=== PATIENT | male | born 1980 | race Caucasian/White ===

== ENCOUNTER 2019-02-27 04:46 | Emergency (ER) | payer BC, SELFPAY ==
[2019-02-27] MEDS ORDERED: IBUPROFEN 400 MG TAB ONE (05:55)
[2019-02-27] MEDS ORDERED: CLINDAMYCIN HCL 150 MG CAP ONE (05:55)
[2019-02-27] MEDS ORDERED: ONDANSETRON 4 MG/2 ML VIAL ONE (06:18)
--- NOTE | 2019-02-27 06:28 | EDPHYS ---
Physician Documentation [facility] Name: Julius Ramírez Age: 38 yrs Sex: Male : 1980 Arrival Date: 02/27/2019 Time: 04:47 Bed 6 Private MD: ED Physician Russ Shah HPI: 02/27 06:23 This 38 yrs old Male presents to ER via Ambulatory with complaints of Hand tw4 Injury. 06:23 The patient or guardian reports injury, pain, swelling. The complaints affect the MCP tw4 of left little finger. Context: The problem was sustained at home, resulted from a direct blow, by a door. Onset: The symptoms/episode began/occurred today. Modifying factors: The symptoms are alleviated by nothing, the symptoms are aggravated by nothing. Associated signs and symptoms: The patient has no apparent associated signs or symptoms. Severity of symptoms: At their worst the symptoms were moderate, in the emergency department the symptoms are unchanged. The patient has not experienced similar symptoms in the past. Historical: - Allergies: 04:59 No Known Allergies; rr5 - Home Meds: 04:59 insulin [Active]; rr5 - PMHx: 04:59 Diabetes - IDDM; rr5 - PSHx: 04:59 foot surgery; Appendectomy; rr5 - Immunization history:: Adult Immunizations up to date, Last tetanus immunization: up to date Flu vaccine is not up to date. - Social history:: Smoking status: Patient/guardian denies using tobacco, Patient/guardian denies using alcohol, street drugs. - Ebola Screening: : Patient negative for fever greater than or equal to 101.5 degrees Fahrenheit, and additional compatible Ebola Virus Disease symptoms Patient denies exposure to infectious person Patient denies travel to an Ebola-affected area in the 21 days before illness onset. ROS: 06:23 Constitutional: Negative for fever, chills, and weight loss, Eyes: Negative for injury, tw4 pain, redness, and discharge, Cardiovascular: Negative for chest pain, palpitations, and edema, Respiratory: Negative for shortness of breath, cough, wheezing, and pleuritic chest pain, Abdomen/GI: Negative for abdominal pain, nausea, vomiting, diarrhea, and constipation, Back: Negative for injury and pain, Skin: Negative for injury, rash, and discoloration, Neuro: Negative for headache, weakness, numbness, tingling, and seizure. 06:23 MS/extremity: Positive for injury or acute deformity, decreased range of motion, deformity, Negative for Exam: 06:23 Constitutional: This is a well developed, well nourished patient who is awake, alert, tw4 and in no acute distress. Head/Face: Normocephalic, atraumatic. Chest/axilla: Normal chest wall appearance and motion. Nontender with no deformity. No lesions are appreciated. Cardiovascular: Regular rate and rhythm with a normal S1 and S2. No gallops, murmurs, or rubs. Normal PMI, no JVD. No pulse deficits. Respiratory: Lungs have equal breath sounds bilaterally, clear to auscultation and percussion. No rales, rhonchi or wheezes noted. No increased work of breathing, no retractions or nasal flaring. Abdomen/GI: Soft, non-tender, with normal bowel sounds. No distension or tympany. No guarding or rebound. No evidence of tenderness throughout. 06:23 Musculoskeletal/extremity: Extremities: grossly normal except: noted in the dorsum of left hand: decreased ROM, laceration, puncture, swelling, tenderness, ROM: limited active range of motion due to pain, in the dorsum of left hand, limited passive range of motion due to pain, in the dorsum of left hand. Vital Signs: 04:58 BP 157 / 94; Pulse 91; Resp 16; Temp 98.5; Pulse Ox 99% ; Weight 90.72 kg; Height 5 ft. rr5 9 in. (175.26 cm); Pain 7/10; 06:00 BP 143 / 100; Pulse 90; Resp 17; Pulse Ox 98% on R/A; rr5 07:31 BP 149 / 93; Pulse 85; Resp 16; Pulse Ox 99% on R/A; sv 04:58 Body Mass Index 29.53 (90.72 kg, 175.26 cm) rr5 MDM: 05:07 Patient medically screened. tw4 12/03 05:52 Data reviewed: vital signs, nurses notes. Data reviewed: radiologic studies, plain tw4 films. Test interpretation: by ED physician or midlevel provider: plain radiologic studies. Counseling: I had a detailed discussion with the patient and/or guardian regarding: the historical points, exam findings, and any diagnostic results supporting the discharge/admit diagnosis. Special discussion: I discussed with the patient/guardian in detail that at this point there is no indication for admission to the hospital. It is understood, however, that if the symptoms persist or worsen the patient needs to return immediately for re-evaluation. 02/27 04:59 Order name: Hand Left 3 View XRAY tw4 02/27 06:15 Order name: IV Saline Lock; Complete Time: 06:33 tw4 Administered Medications: 02/27 05:56 Drug: Cleocin 300 mg Route: PO; rr5 06:33 Follow up: Response: No adverse reaction rr5 05:56 Drug: Motrin 800 mg Route: PO; rr5 06:33 Follow up: Response: No adverse reaction rr5 06:21 Not Given (Patient Refused): Tetanus-Diphtheria Toxoid Adult 0.5 ml IM once ea 06:33 Drug: Zofran 4 mg Route: IVP; Site: right forearm; rr5 07:00 Follow up: Response: No adverse reaction rr5 07:08 Drug: morphine 4 mg {Note: rass 0.} Route: IVP; Site: right forearm; rr5 Disposition: 02/27/19 06:31 Transfer ordered to [facility]. Diagnosis are Displaced fracture of base of fifth metacarpal bone. left hand, open fracture fifth metacarpal left hand. - Reason for transfer: Higher level of care. - Accepting physician is Dr Brower. - Condition is Stable. - Problem is new. - Symptoms have improved. Signatures: Dispatcher [employer] EDWA Dacia Corea RN ROB Russ Shah MD MD tw4 Doni Mckeon RN RN rr5 Iris Euceda RN, ea Corrections: (The following items were deleted from the chart) 06:21 05:00 Hand Right 3 View+RAD.RAD.BRZ ordered. [facility] EDWA 06:30 06:28 02/27/2019 06:28 Discharged to Home. Impression: Displaced fracture of base of tw4 fifth metacarpal bone. left hand; open fracture fifth metacarpal left hand. Condition is Stable. Forms are Medication Reconciliation Form, Thank You Letter, Antibiotic Education, Prescription Opioid Use. Follow up: Private Physician; When: Upon discharge from the Emergency Department; Reason: Recheck today's complaints, Continuance of care. Problem is new. Symptoms have improved. tw4 08:46 06:31 02/27/2019 06:31 Transfer ordered to [facility]. Diagnosis is Displaced sv fracture of base of fifth metacarpal bone. left hand; open fracture fifth metacarpal left hand. Reason for transfer: Higher level of care. Accepting physician is Dr Brower. Condition is Stable. Problem is new. Symptoms have improved. tw4
--- NOTE | 2019-02-27 06:28 | ER ---
Nurse's Notes [facility] Name: Julius Ramírez Age: 38 yrs Sex: Male : 1980 Arrival Date: 02/27/2019 Time: 04:47 Bed 6 Private MD: Diagnosis: Displaced fracture of base of fifth metacarpal bone. left hand;open fracture fifth metacarpal left hand Presentation: 02/27 04:56 Presenting complaint: Patient states: my hand is hurting. I punched the door frame rr5 today at around 0230H. Transition of care: patient was not received from another setting of care. Onset of symptoms was February 27, 2019 at 02:30. Risk Assessment: Do you want to hurt yourself or someone else? Patient reports no desire to harm self or others. Initial Sepsis Screen: Does the patient meet any 2 criteria? No. Patient's initial sepsis screen is negative. Does the patient have a suspected source of infection? No. Patient's initial sepsis screen is negative. Care prior to arrival: None. 04:56 Method Of Arrival: Ambulatory rr5 04:56 Acuity: DMITRIY 4 rr5 04:56 Note abrasion both hands, punctured wound and swelling noted at left hand. rr5 Historical: - Allergies: 04:59 No Known Allergies; rr5 - Home Meds: 04:59 insulin [Active]; rr5 - PMHx: 04:59 Diabetes - IDDM; rr5 - PSHx: 04:59 foot surgery; Appendectomy; rr5 - Immunization history:: Adult Immunizations up to date, Last tetanus immunization: up to date Flu vaccine is not up to date. - Social history:: Smoking status: Patient/guardian denies using tobacco, Patient/guardian denies using alcohol, street drugs. - Ebola Screening: : Patient negative for fever greater than or equal to 101.5 degrees Fahrenheit, and additional compatible Ebola Virus Disease symptoms Patient denies exposure to infectious person Patient denies travel to an Ebola-affected area in the 21 days before illness onset. Screenin:59 Abuse screen: Denies threats or abuse. Denies injuries from another. Nutritional rr5 screening: On. Tuberculosis screening: No symptoms or risk factors identified. Fall Risk None identified. Total James Fall Scale indicates No Risk (0-24 pts). Assessment: 04:59 General: Appears in no apparent distress. uncomfortable, Behavior is calm, cooperative, rr5 appropriate for age. Pain: Complains of pain in right hand and left hand Pain does not radiate. Pain currently is 7 out of 10 on a pain scale. Quality of pain is described as aching, Pain began suddenly, Is intermittent. Neuro: Level of Consciousness is awake, alert, obeys commands, Oriented to person, place, time, situation, Appropriate for age. Cardiovascular: Capillary refill < 3 seconds Patient's skin is warm and dry. Respiratory: Airway is patent Respiratory effort is even, unlabored, Respiratory pattern is regular, symmetrical. GI: : EENT: No signs and/or symptoms were reported regarding the EENT system. Derm: Skin is intact, Skin temperature is warm Wound noted right hand and left hand Wound is abrasion, skin peeled bilateral hands and puncture wound noted on the left hand. Bruising that is dark purple, on left hand. Musculoskeletal: Capillary refill < 3 seconds, Swelling present in dorsum of left hand Reports pain in right hand and left hand Pain is 7 out of 10 on a pain scale. 06:25 Reassessment: Patient appears in no apparent distress at this time. ED provider aware rr5 with order made and carried out. patient updated for the plan of transfer. patient agreed for the plan of care. GI: Reports nausea. 06:40 Reassessment: report called to Rebecca Todd RN at [facility] ED. bb 07:05 Reassessment: complaint of left hand pain. ED provider aware with order made and rr5 carried out. cold compress applied. Vital Signs: 04:58 BP 157 / 94; Pulse 91; Resp 16; Temp 98.5; Pulse Ox 99% ; Weight 90.72 kg; Height 5 ft. rr5 9 in. (175.26 cm); Pain 7/10; 06:00 BP 143 / 100; Pulse 90; Resp 17; Pulse Ox 98% on R/A; rr5 07:31 BP 149 / 93; Pulse 85; Resp 16; Pulse Ox 99% on R/A; sv 04:58 Body Mass Index 29.53 (90.72 kg, 175.26 cm) rr5 ED Course: 04:47 Patient arrived in ED. ds1 04:49 Doni Mckeon, RN is Primary Nurse. rr5 04:57 Russ Shah MD is Attending Physician. tw4 04:58 Triage completed. rr5 04:59 Arm band placed on. rr5 05:02 Patient has correct armband on for positive identification. Bed in low position. Call rr5 light in reach. 06:21 Hand Left 3 View XRAY In Process Unspecified. EDMS 06:30 Inserted saline lock: 20 gauge in right forearm, using aseptic technique. rr5 07:31 transfer transportation to receiving facility. sv 08:45 No provider procedures requiring assistance completed. Patient transferred, IV remains sv in place. intact. Administered Medications: 05:56 Drug: Cleocin 300 mg Route: PO; rr5 06:33 Follow up: Response: No adverse reaction rr5 05:56 Drug: Motrin 800 mg Route: PO; rr5 06:33 Follow up: Response: No adverse reaction rr5 06:21 Not Given (Patient Refused): Tetanus-Diphtheria Toxoid Adult 0.5 ml IM once ea 06:33 Drug: Zofran 4 mg Route: IVP; Site: right forearm; rr5 07:00 Follow up: Response: No adverse reaction rr5 07:08 Drug: morphine 4 mg {Note: rass 0.} Route: IVP; Site: right forearm; rr5 Outcome: 06:28 Discharge ordered by . tw4 06:31 ER care complete, transfer ordered by . tw4 08:46 Transferred by ground EMS to [facility], Transfer form sv completed. Note: Report given to [facility] 08:46 Condition: stable 08:46 Instructed on the need for transfer. 08:46 Patient left the ED. sv Signatures: Dispatcher [employer] EDNV Dacia Corea, RN RN Triny Salgado ds1 Hedy Cox RN RN bb Wadley, Terrence, MD MD tw4 Doni Mckeon RN RN rr5 Iris Euceda RN, ea
[2019-02-27] MEDS ORDERED: MORPHINE 4 MG/ML SYR ONE (07:04)
--- NOTE | 2019-02-27 08:35 | RAD REPORT ---
EXAM DESCRIPTION: RAD - Hand Left 3 View - 02/27/2019 6:21 am CLINICAL HISTORY: Left hand pain, trauma COMPARISON: None. FINDINGS: Left fifth metacarpal is fractured at the diaphyseal metaphyseal junction. Approximately 4 0 degrees ventral angulation noted. No significant distraction. There is impaction along the radial s january of the fracture. The fifth MCP joint is intact. The remainder the hand without fracture or acute bone or joint finding . No foreign body or other soft tissue abnormality. IMPRESSION: Distal fifth metacarpal fracture with significant ventral angulation
[2019-02-27 10:05] VITALS: TEMP 98.5
[2019-02-27 10:07] VITALS: BP 149/93; O2SAT 99
== END 2019-02-27 08:46 | disposition short-term general hospital (02) ==
LOC: ER 04:46
DX: S62.317A Displaced fracture of base of fifth metacarpal bone, left hand, initial encounter for closed fracture (principal); S62.307B Unspecified fracture of fifth metacarpal bone, left hand, initial encounter for open fracture; W22.8XXA Striking against or struck by other objects, initial encounter; Y93.9 Activity, unspecified; Y92.009 Unspecified place in unspecified non-institutional (private) residence as the place of occurrence of the external cause; E11.9 Type 2 diabetes mellitus without complications; Z79.4 Long term (current) use of insulin
CPT/HCPCS: 73130; 96375; 96374; 99285; J2405